=== PATIENT | female | born 1955 | race Caucasian/White ===

== ENCOUNTER 2018-04-13 06:22 | Day surgery (SDC) | payer OTHER ==
[2018-04-10 12:14] LABS: Absolute Lymphocytes (CBC) 1.3 K/uL (0.7-4.9); Absolute Monocytes 0.3 K/uL (0.1-1.3); Absolute Neutrophil 4.8 K/uL (1.8-8.0); Basophils % 0.7 % (0-1.3); Eosinophils % 4.2 % (0-4.4); Hematocrit 51.8 % (36.0-45.0); Lymphocytes % 19.3 % (15.3-44.8); MCV 85.3 fL (80-100); MPV 8.3 fL (7.6-11.3); Monocytes % 4.9 % (3.3-12.3); RBC Red Blood Cell Count 6.07 M/uL (3.86-4.86)
[2018-04-10 12:15] LABS: Protime INR 0.87
--- NOTE | 2018-04-10 12:15 | EKG ---
Test Date: 2018-04-10 Test Time: 10:40:34 Helicopter Pilot Instructor: AIDEN MEASUREMENT RESULTS: Intervals: Rate: 60 MO: 162 QRSD: 84 QT: 418 QTc: 418 [place]: P: 53 MO: 162 QRS: 27 T: 48 INTERPRETIVE STATEMENTS: Normal sinus rhythm Normal ECG Compared to ECG 07/31/2015 18:32:28 No significant changes Electronically Signed On 04-10-18 12:15:02 CDT by Derrell Garcia
[2018-04-10 12:16] LABS: Urine Appearance CLEAR; Urine Bilirubin NEGATIVE (NEG); Urine Blood NEGATIVE (NEG); Urine Color YELLOW; Urine Glucose NEGATIVE (NEG); Urine Protein NEGATIVE (NEG); Urine Specific Gravity 1.025 (1.005-1.030); Urine Urobilinogen 0.2 mg/dL (0.2-1.0)
[2018-04-10 12:20] LABS: Potassium 4.8 mEq/L (3.6-5.0)
[2018-04-10 12:43] LABS: Urine Microscopic Reflex ORDER UMIC
[2018-04-10 12:53] LABS: Blood Morphology Comment NOT SEEN (NOT SEEN); Platelet Estimate ADEQ; Urine White Blood Cell Casts OK
[2018-04-10 14:50] LABS: Urine Bacteria <20 /HPF (<20); Urine RBC <5 /HPF (NONE SEEN)
[2018-04-10 14:51] LABS: Urine Culture Reflex Order NOT NEEDED
[2018-04-13] MEDS ORDERED: Ringers Lactate 1,000 ML IV ONE ×3 (06:36→10:19)
[2018-04-13] MEDS ORDERED: NA CHLORIDE 0.9% 100 ML IV ONE (06:59)
[2018-04-13] MEDS ORDERED: CEFAZOLIN/SWI 1gm 0 GM/0 ML SYR ONE (07:00)
[2018-04-13] MEDS ORDERED: ONDANSETRON HCL 40 MG/20 ML VIAL ONE (07:02)
[2018-04-13] MEDS ORDERED: PROPOFOL 200 MG/20 ML VIAL IV ONE (07:02)
[2018-04-13] MEDS ORDERED: LIDOCAINE 2% MPF 5 ML VIAL ONE (07:02)
[2018-04-13] MEDS ORDERED: ROCURONIUM 50 MG/5 ML VIAL IV ONE (07:02)
[2018-04-13] MEDS ORDERED: MIDAZOLAM HCL 2 MG/2 ML INJ ONE (07:02)
[2018-04-13] MEDS ORDERED: FENTANYL CITR 250 MCG/5 ML ONE ×2 (07:02→08:53)
[2018-04-13] MEDS: VASOPRESSIN 20 UNIT/ML VIAL ONE ×2 (07:34→08:16)
[2018-04-13] MEDS: CEFAZOLIN/SWI 2gm 2 GM/20 ML SYR IV SCH ×2 (07:34→08:00)
[2018-04-13] MEDS ORDERED: GLYCOPYRROLATE 0.2 MG/ML SYR ONE ×3 (08:20→09:59)
[2018-04-13] MEDS ORDERED: EPHEDRINE SULF 50 MG/5 ML SYR ONE (08:22)
[2018-04-13 11:21] VITALS: O2SAT 95
[2018-04-13] MEDS ORDERED: MORPHINE 4 MG/ML SYR IV PRN (11:41)
[2018-04-13] MEDS ORDERED: PROMETHAZINE 25 MG/ML VIAL IV PRN (11:42)
[2018-04-13] MEDS ORDERED: PROMETHAZINE 25 MG TABLET PO PRN (11:43)
[2018-04-13 12:22] VITALS: BMI 29.0
[2018-04-13] MEDS: ACETAMINOPHEN 325 MG TABLET PO PRN ×2 (12:25→19:06)
--- NOTE | 2018-04-14 03:25 | OP ---
Date of Procedure: 04/13/2018 Surgeon: Eulalia White MD Moisture Meter Operator: Sherri Estrella. Preoperative Diagnoses: Stage 3 posterior wall prolapse (rectocele), vaginal wall prolapse, perineal defect, and large posterior enterocele. Postoperative Diagnoses: Stage 3 posterior wall prolapse (rectocele), vaginal wall prolapse, perinea l defect, and large posterior enterocele. Procedures Performed: Posterior wall repair (rectocele repair), posterior enterocele repair, perineo marcela repair, right sacrospinous ligament fixation colpopexy, cystoscopy. Estimated Blood Loss: 100. Complications: No complications. Drains: Howard catheter and vaginal packing. Condition: Stable. Description Of Procedure: After informed consent was re-verified, 1 g of Ancef was given to the delicia ent, and she was brought to the OR. She was placed in supine fashion on the operating table. After general anesthesia was given, she was placed in dorsal lithotomy position using Brody stirrups. Afte r positioning was checked, the lower abdomen, vulva, vagina, and perineum were prepped and draped in a sterile fashion. Pelvic exam was performed and the POP-Q was confirmed. She had -2, -2, -4, 5 cm, thin, 7 cm, 0, +2, and nonapplicable. Her perineal body was thin and there appeared to be perineoce le. After placing a Howard in the bladder, bladder was drained. It was occluded with a Bhakti and retracte d superiorly. A [place] was placed to expose the vaginal wall. The midline posterior wall was held w ith 3 Allis clamps from the apex to the distal portion. Here, 2 Allis clamps were placed on each logan e of the vaginal entrance lateral to the vestibule. Then, local injection was given with dilute vaso pressin 20 units mixed with 50 cc of normal saline. About 40 cc was injected in the perineum and in the posterior wall all the way to the apex. A triangular skin incision was made and excised. Cnc Machinist ior compartment was accessed by entering through this incision. There was at least 4 cm scar that ap peared to be extremely thick. Rectovaginal exam was performed to stay in the right plane and keep aw ay from the bowel. No evidence of any trauma to the bowel. There was like a stitch of retention cys t that was excised on the way. Dissection was carried superiorly, systematically, taking down the re ctovaginal septum away from the vaginal epithelium and sub-epithelium. Once this entire fascia was d issected, about 6 cm of this was present, so distal to this there was a large posterior enterocele, a nd it measured at least about [address], dissection was performed to the apex, and to the la teral sidewall, there was detachment of the wall to the left lateral wall and this most likely was ia trogenic. Once the entire dissection was performed, then the enterocele sac was isolated without ope dixie it or entering it. We went ahead to close it with 3-0 Vicryl in a pursestring fashion and anoth er 2-0 Vicryl more distally right above the level of the fascia. Once these both were reduced, there was good reduction of the posterior enterocele optimally. Then, dissection was performed towards th e right ischial spine. The spine was not very prominent; however, once dissection was carried to her e and sweeping medially and posteriorly towards the coccyx, the sacrospinous ligament was exposed to its coccygeus muscle. The rectum was swept medially and kept away. Two 0 Ethibond sutures were take n. With Capio device opened, the sutures were placed about 2 cm medial and posterior to the ischial spine on the sacrospinous ligament first medially, then the lateral stitch was placed. These both we re held on a curved and a straight clamp and care was taken to not cross them. Then, the possible di stal uterosacral ligaments or the attachment above the level of the apex were held with Allis clamps and sutures of Ethibond were passed through here on both sides and they were retracted and kept later ally. Then, the rectovaginal septum was taken. It was sutured with 2-0 PDS to the apex. The latera l wall that was identically detached was closed with the help of 2-0 Vicryl in a continuous running f ashion. On the right side, there was also detachment here and this was also sutured back to the wall with 2-0 Vicryl. Once all these were reattached to the apex, then the vaginal epithelium was trimme d since it was extremely redundant, probably about half a centimeter on each side. The scar was exci sed in the distal 5 cm where the scar was present. Then, 2-0 Vicryl was used to start the vaginal cl osure of the epithelium from the apex. About 3 cm was closed and this was held on the retractor. Th en, went ahead and tied the sacrospinous sutures. Due to the length of the rectovaginal septum that was naturally present, there was a natural suture bridge left. I was not able to take the apex all t he way down to the sacrospinous ligament and I believe that this would be the safest way not to put e xcessive pressure on the ligament and cause pain. I think, the suspension was adequate. The depth w as 8 cm with preventing excessive tension on the repaired and reattached rectovaginal septum. So, th e suture was tied, the bridge was less than 1 cm. The second suture was tied without any problems an d this came down much better, then the first suture; however, a bridge of less than half centimeter w as still present. The rest of the vaginal epithelium was closed all the way to the level above the vestibule. Prior to the start of the vaginal closure after the septum was reattached on all sides distally, ther e was a perineocele that was a defect present, so here the deep transverse perinei muscles were disse cted laterally to find the retracted ends of these, and these were brought together. Care was taken not to plicate the levators; however, 4 stitches were placed with leaving a finger in the rectum and these were held on hemostats. Then, once all these were placed adequately bringing together the entir e perineum for perineal reconstruction, gloves were changed, and the sutures were tied, and there was an excellent perineal body. The 3-0 Vicryl was used to close in a continuous fashion subcutaneously and then subcuticularly and t his was closed at the hymen. Rectal exam was performed. No evidence of any trauma to the rectum or any sutures, not even at the s acrospinous site. Cystoscopy was performed after removing the Howard and this was mostly unremarkable. Both ureteric or ifices were well visualized and there were strong jets of urine. There was somewhat delayed jet from the left side, but before I decided to put and catheterize it with a stent, it had a strong jet of u rine and from thereon there were strong jets of urine continuously, so there was no need for placing a Glidewire in the ureter. There was no evidence of any mechanical trauma and no foreign body to the bladder. Bladder was drain ed. Howard was replaced. Vagina was packed. The patient was recovered from anesthesia and taken to PACU in stable condition. Instrument, needle, and sponge counts x3 were correct at the end of the ca se. She will be admitted overnight and she will discharge after her voiding trials tomorrow. PABLO/PAUL Voice ID: [id number] Report ID: [id number]
[2018-04-14] MEDS: ACETAMINOPHEN 325 MG TABLET PO PRN (05:25)
[2018-04-14 07:24] VITALS: BP 139/60; TEMP 98.9
== END 2018-04-14 10:15 | disposition home or self-care (01) ==
LOC: OR 06:22 → 2ND-WC 11:22 → OR 04-14 10:15
PROVIDERS: ATTEND Obstetrics & Gynecology
PROC: 0HQ9XZZ Repair Perineum Skin, External Approach (ICD-10-PCS; 2018-04-13)
PROC: 0JQC0ZZ Repair Pelvic Region Subcutaneous Tissue and Fascia, Open Approach (ICD-10-PCS; 2018-04-13)
PROC: 0JQC0ZZ Repair Pelvic Region Subcutaneous Tissue and Fascia, Open Approach (ICD-10-PCS; 2018-04-13)
PROC: 0UQF0ZZ Repair Cul-de-sac, Open Approach (ICD-10-PCS; 2018-04-13)
PROC: 0USG7ZZ Reposition Vagina, Via Natural or Artificial Opening (ICD-10-PCS; 2018-04-13)
PROC: 0TJB8ZZ Inspection of Bladder, Via Natural or Artificial Opening Endoscopic (ICD-10-PCS; 2018-04-13)
PROC: 0JQC0ZZ Repair Pelvic Region Subcutaneous Tissue and Fascia, Open Approach (ICD-10-PCS; principal; 2018-04-13 07:30)
DX: N81.3 Complete uterovaginal prolapse (principal); I10 Essential (primary) hypertension
CPT/HCPCS: 36415; 80048; 81003; 81015; 85025; 85610; 85730; 86850; 86900; 86901; 93005; J0690; J2250; J2405; J2550

== ENCOUNTER 2019-07-23 07:34 | Day surgery (SDC) | payer OTHER ==
--- NOTE | 2019-07-19 12:56 | RAD REPORT ---
EXAM DESCRIPTION: RAD - Chest Pa And Lat (2 Views) - 07/19/2019 11:11 am CLINICAL HISTORY: preoppatient pending gallbladder surgery COMPARISON: July 2015 TECHNIQUE: PA and lateral views of the chest were obtained. FINDINGS: The lungs are clear of an acute infiltrate or mass. Lung markings are prominent but not si gnificantly different from comparison. No failure or volume overload. Heart size is normal and cent ral vasculature is within normal limits. No pleural effusion or pneumothorax seen. No acute bony fi nding noted. No aortic abnormality. IMPRESSION: No acute cardiopulmonary process. Mildly prominent interstitial pattern matches comparison.
[2019-07-20 07:58] LABS: Absolute Lymphocytes (CBC) 1.3 K/uL (0.7-4.9); Basophils % 0.8 % (0-1.3); Lymphocytes % 16.4 % (15.3-44.8); MPV 8.2 fL (7.6-11.3); RBC Red Blood Cell Count 5.37 M/uL (3.86-4.86)
[2019-07-20 08:06] LABS: Potassium 4.4 mmol/L (3.5-5.1)
[2019-07-20 08:08] LABS: Bilirubin Direct 0.1 mg/dL (0-0.2); Bilirubin Total 0.2 mg/dL (0.2-1.0)
--- NOTE | 2019-07-20 08:41 | EKG ---
Test Date: 2019-07-19 Test Time: 08:19:00 Asbestos Brake Lining Finisher Helper: AIDEN MEASUREMENT RESULTS: Intervals: Rate: 71 SD: 152 QRSD: 82 QT: 384 QTc: 417 [place]: P: 51 SD: 152 QRS: 29 T: 56 INTERPRETIVE STATEMENTS: Normal sinus rhythm Normal ECG Compared to ECG 04/10/2018 10:40:34 No significant changes Electronically Signed On 07-20-19 08:39:33 CDT by Derrell Garcia
[2019-07-23] MEDS ORDERED: CIPROFLOXACIN 400mg IV 400 MG/200 ML BAG IV ONE (07:43)
[2019-07-23] MEDS ORDERED: Ringers Lactate 1,000 ML IV ONE ×2 (07:43→10:23)
[2019-07-23] MEDS ORDERED: FENTANYL CITR 100 MCG/2 ML ONE ×2 (08:36→09:55)
[2019-07-23] MEDS ORDERED: PROPOFOL 200 MG/20 ML VIAL IV ONE (08:36)
[2019-07-23] MEDS ORDERED: ROCURONIUM 50 MG/5 ML VIAL IV ONE (08:36)
[2019-07-23] MEDS ORDERED: MIDAZOLAM HCL 2 MG/2 ML INJ ONE (08:36)
[2019-07-23] MEDS ORDERED: LIDOCAINE 2% MPF 5 ML VIAL ONE (08:36)
[2019-07-23] MEDS ORDERED: ONDANSETRON 4 MG/2 ML VIAL ONE (09:31)
[2019-07-23] MEDS ORDERED: dexAMETHasone 10 MG/ML VIAL ONE (09:31)
[2019-07-23] MEDS ORDERED: NEOSTIGMINE 1 MG/ML -10 ML VIAL ONE (09:54)
[2019-07-23] MEDS ORDERED: GLYCOPYRROLATE 0.2 MG/ML SYR ONE ×2 (09:54→10:16)
[2019-07-23] MEDS ORDERED: KETOROLAC 30 MG/ML INJ ONE (09:57)
--- NOTE | 2019-07-23 10:30 | P.BOP ---
Preoperative diagnosis: RUQ abd pain, symptomatic cholelithiasis Postoperative diagnosis: same Primary procedure: Laparoscopic cholecystectomy Customer Technical Services Manager: GAURI BOND (GRADUATING MACHINE OPERATOR) Estimated blood loss: <10cc Specimen: gb Findings: as above Anesthesia: General Complications: None Transferred to: Recovery Room Condition: Good
[2019-07-23] MEDS ORDERED: CODEINE 30MG/APAP 300MG TAB ONE (11:08)
[2019-07-23 12:54] VITALS: BP 139/62; TEMP 97.5; O2SAT 95
--- NOTE | 2019-07-23 22:30 | OP ---
Date of Procedure: 07/23/2019 Surgeon: Kahlil Wahl MD Line Erector: Monse Koch. Preoperative Diagnoses: Right upper quadrant abdominal pain, symptomatic cholelithiasis. Postoperative Diagnoses: Right upper quadrant abdominal pain, symptomatic cholelithiasis. Procedure: Laparoscopic cholecystectomy. Estimated Blood Loss: Less than 10 cc. Specimen: Gallbladder. Anesthesia: General plus local. Indications: This is a case of a 64-year-old patient, comes with above diagnosis. Fully explained t he benefits, alternatives, and risks of laparoscopic, possible open cholecystectomy, which include bu t are not limited to infection, bleeding, damage to adjacent structure, as complication, choledocholi thiasis, bile leak, pancreatitis, NE, and even . She also understands this may not relieve the symptoms. She might need more than one surgical intervention. She understood, signed a consent. Description Of Procedure: The patient was brought to the operating room, placed in supine position. Anesthesia was done without complication. A time-out was called. Abdominal area was prepped and dr aped in a sterile fashion. Marcaine 0.5% was injected for local anesthetic, followed by sharp incisi on of the skin in the infraumbilical region. Incision was carried down to fascia, which was opened u nder direct vision. Vicryl #1 placed inside the fascia. Kelli trocar was carefully introduced. No bleeding was obtained. I placed 3 more trocars, 5 mm each one of them in the epigastric and right u pper quadrant area under direct visualization. The fundus of the gallbladder was grasped with a gras per as we removed the adhesions of omentum to the gallbladder. Infundibulum was identified. Another grasper placed in the infundibulum, the gallbladder retracted in the inferolateral fashion, exposing the triangle of [place], obtaining critical view of safety. The cystic duct and cystic artery were cl early isolated free circumferentially and a connection between those and the gallbladder were clearly identified. I proceeded to ligate those by using at least 3 clips proximal, 1 clip distal, ligation in middle. Same was done with the cystic artery. A small little branch of the cystic artery was al so ligated. The hepatic arteries right and left and common hepatic duct and then and common bile matt t were protected at all times. The gallbladder was removed from liver using Bovie cauterizer and rem korina from abdominal cavity using an EndoCatch through the umbilical incision. After ensuring proper hemostasis, we proceed to irrigate the area. Once again, no bleeding. At that moment, I proceeded t o remove the trocars under direct vision. Deflated the pneumoperitoneum. Closed the fascia with #1 Vicryl. Irrigated subcutaneous tissue, closed that with 3-0 chromic and skin in a subcuticular fashi on with a Steri-Strip on top. Sponge count and instrument counts were correct. The patient tolerate d the procedure well. The patient was sent to recovery in stable condition. HAKAN/PAUL Voice ID: [id number] Report ID: [id number]
--- NOTE | 2019-07-23 22:30 | DS ---
Date of Discharge: 07/23/2019 Diagnoses: Right upper quadrant pain, symptomatic cholelithiasis. Procedure: Laparoscopic cholecystectomy. Disposition: Home. Activity: As tolerated. No heavy lifting. Followup: Follow up in my office in 1 week. Call for appointment at [phone]. Keep area dry for 48 hours, then may shower. Keep Steri-Strips intact. Medications: See orders. HAKAN/PAUL Voice ID: [id number] Report ID: [id number]
== END 2019-07-23 11:35 | disposition home or self-care (01) ==
LOC: OR 07:34
PROVIDERS: ATTEND Surgery
PROC: 0FT44ZZ Resection of Gallbladder, Percutaneous Endoscopic Approach (ICD-10-PCS; principal; 2019-07-23 09:15)
DX: K80.10 Calculus of gallbladder with chronic cholecystitis without obstruction (principal); Z88.0 Allergy status to penicillin
CPT/HCPCS: 93005; 85025; 80048; 36415; 82150; 80076; 88304; 83690; 71046; 47562; J2704; J2710; J2250; J3010 ×2; J1100; J2405; J0744

== ENCOUNTER 2023-06-24 13:16 | Emergency (ER) | payer OTHER ==
--- OUTSIDE RECORDS SUMMARY | 2023-06-24 13:19 | XMS REPORT | Continuity of Care Document ---
:1955 Author Organization [facility] t Address [address] [place] [address] Care Team Providers Name Role Phone Babak Campo MD Primary Care Physician Babak Campo MD Attending Clinician Problems This patient has no known problems. Allergies, Adverse Reactions, Alerts This patient has no known allergies or adverse reactions. Social History Social Habit Start Date Stop Date Quantity Comments Source Gender identity [facility] Sexual orientation [facility] Sex Assigned At [birth year] [facility] 00:00:00 00:00:00 Smoking Status Start Date Stop Date Source Tobacco smoking consumption unknown [facility] Medications This patient has no known medications. Procedures Procedure Date / Time Performed Performing Clinician [facility] e US VASCULAR SCREENING 2022-10-20 15:09:38 Babak Campo [facility] HEART SCAN PLUS CT HEART SCAN PLUS W 2022-10-20 13:21:51 Babak Campo [facility] PHYSICIAN ORDER Plan of Care Planned Activity Planned Date Details Comments Source Future Scheduled 2023-06-21 Screening for [facility] Test 20:10:05 malignant neoplasm of colon (procedure) [code = 173056276] Future Scheduled 2023-06-21 Screening for [facility] Test 20:10:05 malignant neoplasm of colon (procedure) [code = 397334235] Future Scheduled 2023-06-21 Screening for [facility] Test 20:10:05 malignant neoplasm of colon (procedure) [code = 028026595] Future Scheduled 2023-06-21 [facility]atitis C [facility] Test 20:10:05 (procedure) [code = 676170040] Future Scheduled 2023-06-21 BREAST CANCER [facility] Test 20:10:05 SCREENING [code = BREAST CANCER SCREENING] Future Scheduled 2023-06-21 Screening for [facility] Test 20:10:05 malignant neoplasm of colon (procedure) [code = 099541259] Future Scheduled 2023-06-21 Screening for [facility] Test 20:10:05 malignant neoplasm of colon (procedure) [code = 384431710] Future Scheduled 2023-06-21 SHINGLES VACCINES (1 [facility] Test 20:10:05 of 2) [code = SHINGLES VACCINES (1 of 2)] Future Scheduled 2023-06-21 65+ PNEUMOCOCCAL [facility] Test 20:10:05 VACCINE (1 - PCV) [code = 65+ PNEUMOCOCCAL VACCINE (1 - PCV)] Future Scheduled 2023-06-21 COVID-19 VACCINE (4 - Me [facility] Test 20:10:05 Pfizer series) [code = COVID-19 VACCINE (4 - Pfizer series)] Future Scheduled 2023-06-21 INFLUENZA VACCINE (#1) [facility] Test 20:10:05 [code = INFLUENZA VACCINE (#1)] Encounters Start End Encounter Admission Attending Care Care Encounter Source Date/Time Date/Time Type Type Clinicians Facility Department ID 2022-10-20 2022-10-[address]1 [id number] [facility] 07:03:38 23:59:00 Encounter Babak [id number] 3.430.2.7 Hospit a .3.086021 l 8 2022-10-20 2022-10-[address]1 [id number] [facility] 07:03:05 23:59:00 Encounter Babak [id number] 3.430.2.7 Hospit a .3.038876 l .8 2022-10-20 2022-10-20 Outpatient [facility] [id number] 00:00:00 00:00:00 BABAK [address] 2022-10-20 2022-10-20 Outpatient [facility] [id number] [address] [place] [address] 00:00:00 00:00:00 BABAK [address] 2022-10-20 2022-10-20 Travel 1.2.840.1 [id number] [facility] 00:00:00 00:00:[address] 3.430.2.7 0.2.7.3.698 Ho spita .3.952462 084.8 l .8 2022-08-02 2022-08-02 Transcribe Jahaira, 1.2.840.1 [id number] [facility] 00:00:00 00:00:00 Orders Babak [id number] 3.430.2.7 Hospit a .3.453136 l .8 Results This patient has no known results.
[2023-06-24 13:39] LABS: Absolute Lymphocytes (CBC) 1.4 K/uL (0.7-4.9); Hematocrit 49.3 % (36.0-45.0); Lymphocytes % 14.7 % (15.3-44.8); MCV 85.3 fL (80-100); MPV 7.4 fL (7.6-11.3); Platelets 287 thou/uL (152-406); RBC Red Blood Cell Count 5.78 M/uL (3.86-4.86)
[2023-06-24 13:48] LABS: Protime INR 0.95
[2023-06-24 13:58] LABS: Albumin 3.2 g/dL (3.4-5.0); Bilirubin Direct 0.1 mg/dL (0-0.2); Bilirubin Indirect, Calculated 0.3 mg/dL (0.2-0.8); Bilirubin Total 0.4 mg/dL (0.2-1.0); Magnesium 2.1 mg/dL (1.6-2.4); Potassium 3.8 mEq/L (3.5-5.1); Protein, Total 7.3 g/dL (6.4-8.2)
[2023-06-24 14:00] LABS: Troponin High Sensitivity 65.9 pg/mL (<58.9)
--- NOTE | 2023-06-24 14:02 | RAD REPORT ---
EXAM DESCRIPTION: RAD - Chest Single View - 06/24/2023 1:47 pm CLINICAL HISTORY: CHEST PAIN Chest pain. COMPARISON: Chest Pa And Lat (2 Views) dated 07/19/2019; CHEST SINGLE VIEW dated 07/31/2015 FINDINGS: Portable technique limits examination quality. Mild interstitial pulmonary edema. The heart is normal in size. No displaced fractures. IMPRESSION: Mild interstitial pulmonary edema.
--- NOTE | 2023-06-24 14:35 | RAD REPORT ---
EXAM DESCRIPTION: CT - Chest For Pe Angio - 06/24/2023 2:23 pm CLINICAL HISTORY: Chest pain. CHEST PAIN COMPARISON: <Comparisons> TECHNIQUE: CT angiogram of the pulmonary arteries was performed with MIP. All CT scans are performed using dose optimization technique as appropriate and may include automated exposure control or mA/KV adjustment according to patient size. FINDINGS: No evidence of pulmonary thromboembolism. No acute aortic finding demonstrated. Mild diffuse emphysema. No significant pericardial or pleural fluid. No concerning bony finding. 20 mm left thyroid nodule. IMPRESSION: No evidence of pulmonary thromboembolism. Mild diffuse COPD.
[2023-06-24] MEDS ORDERED: ONDANSETRON 4 MG/2 ML VIAL ONE (14:46)
[2023-06-24] MEDS ORDERED: NITROGLYCERIN 0.4 MG/TAB SL ONE (14:46)
[2023-06-24] MEDS ORDERED: MORPHINE 4 MG/ML SYR ONE (14:46)
[2023-06-24] MEDS ORDERED: HEPARIN/D5W 25,000 UNIT/500 ML BAG IV ONE (14:47)
[2023-06-24] MEDS ORDERED: HEPARIN 5000 UNIT/ML 1 ML VIAL ONE (14:47)
--- NOTE | 2023-06-24 14:55 | EDPHYS ---
Physician Documentation [facility] Name: Radha Aguila Age: 68 yrs Sex: Female : 1955 Arrival Date: 06/24/2023 Time: 13:16 Bed 4 Private MD: ED Physician Manuel Stanley HPI: 06/24 13:29 This 68 yrs old Female presents to ER via Unassigned with complaints of Chest Pain, sp3 Sent by . 13:29 68-year-old female with history of hypertension, hyperlipidemia presents to the ED sp3 referred by Dr. Mast's office for possible unstable angina versus acute coronary syndrome. Patient is initially saw Dr. Campo her PCP who then referred her to Dr. Mast who then referred her to the ED. Patient states that over the last 4 to 5 days she has had bad "indigestion" with substernal chest pain dull in nature that will not go away. Rakeshe helped briefly. She has had a cholecystectomy in the past. She denies abdominal pain, vomiting, diarrhea, fever, back pain, syncope, near syncope, focal neurodeficit, known sick contacts, travel history, prolonged immobilization, prior history of DVT or PE, or any other concerning history or symptoms on ROS at this time. Patient received aspirin in the cardiology office prior to arrival.. Historical: - Allergies: 13:36 No Known Allergies; nj1 - PMHx: 13:36 Hypercholesterolemia; Hypertensive disorder; nj1 - PSHx: 13:36 Cholecystectomy; nj1 - Immunization history:: Client reports having NOT received the Covid vaccine. - Social history:: Smoking status: Patient denies any tobacco usage or history of. ROS: 13:30 Constitutional: Negative for fever, chills, and weight loss, Eyes: Negative for injury, sp3 pain, redness, and discharge, ENT: Negative for injury, pain, and discharge, Neck: Negative for injury, pain, and swelling, Respiratory: Negative for shortness of breath, cough, wheezing, and pleuritic chest pain, Abdomen/GI: Negative for abdominal pain, nausea, vomiting, diarrhea, and constipation, Back: Negative for injury and pain, MS/Extremity: Negative for injury and deformity, Skin: Negative for injury, rash, and discoloration, Neuro: Negative for headache, weakness, numbness, tingling, and seizure, Psych: Negative for depression, anxiety, suicide ideation, homicidal ideation, and hallucinations, Allergy/Immunology: Negative for hives, rash, and allergies, Endocrine: Negative for neck swelling, polydipsia, polyuria, polyphagia, and marked weight changes. 13:30 All other systems are negative. Exam: 13:31 ECG was reviewed by the Attending Physician. EKG demonstrates normal sinus rhythm at 76 sp3 bpm with normal intervals, normal QRS, normal axis, normal ST/T-segment's without evidence of acute ischemia. Vital Signs: 13:19 BP 178 / 98; Pulse 87; Resp 18; Temp 98.4(O); Pulse Ox 98% on R/A; Weight 95.25 kg; nj1 Height 5 ft. 10 in. ; 14:30 BP 202 / 102; Pulse 105; Resp 20; Pulse Ox 94% on R/A; iw 14:44 BP 155 / 84; Pulse 102; Resp 16; Pulse Ox 95% on R/A; iw 15:01 BP 139 / 100; Pulse 84; Resp 16; Pulse Ox 97% on 2 lpm NC; iw 15:37 BP 98 / 87; Pulse 86; Resp 16; Pulse Ox 98% on R/A; Pain 0/10; iw 13:19 Body Mass Index 30.13 (95.25 kg, 177.8 cm) nj1 15:37 Pain Scale: Adult iw MDM: 13:24 Patient medically screened. sp3 13:31 Data reviewed: vital signs, nurses notes, lab test result(s), EKG, radiologic studies. sp3 ED course: 68-year-old female with nonspecific chest pain for several days sent by cardiology for further evaluation. Differential diagnosis includes acute coronary syndrome, gastroesophageal reflux, gastritis, pulmonary pathology, mediastinitis, pulmonary embolism, among others. I am not highly suspicious for sepsis or shock. Will obtain CT scan of the chest with PE protocol, laboratory values and EKG has already been done. Likely 23-hour observation under hospitalist with cardiology consultation and further work-up as indicated. Patient has already received aspirin and is clinically stable with no ongoing chest pain and normal EKG for me here in the ED.. 14:41 ED course: Patient had recurrent chest pain on high severity coupled with increased sp3 blood pressure. Nitroglycerin was immediately ordered along with morphine and Zofran. Heparin drip has been started. Repeat EKG demonstrates significant changes compared to her first. She now has inferolateral changes with ST depressions and PVCs with mild elevation in aVR as well. Dr. Mast is at bedside and request transfer to [facility] for urgent catheterization given logistics for other hospitals that he has privileges and would be too slow.. 06/24 13:23 Order name: Basic Metabolic Panel; Complete Time: 14:07 sp3 06/24 13:23 Order name: CBC with Diff; Complete Time: 14:07 sp3 06/24 13:23 Order name: LFT's; Complete Time: 14:07 sp3 06/24 13:23 Order name: Magnesium; Complete Time: 14:07 sp3 06/24 13:23 Order name: NT PRO-BNP; Complete Time: 14:07 sp3 06/24 13:23 Order name: PT-INR; Complete Time: 14:07 sp3 06/24 13:23 Order name: Troponin HS; Complete Time: 14:07 sp3 06/24 13:23 Order name: XRAY Chest (1 view); Complete Time: 14:07 sp3 06/24 13:23 Order name: CT Chest For PE Angio; Complete Time: 14:40 sp3 06/24 13:23 Order name: EKG; Complete Time: 13:24 sp3 06/24 13:23 Order name: Cardiac monitoring; Complete Time: 13:53 sp3 06/24 13:23 Order name: EKG - Nurse/Tech; Complete Time: 13:35 sp3 06/24 13:23 Order name: IV Saline Lock; Complete Time: 13:35 sp3 06/24 13:23 Order name: Labs collected and sent; Complete Time: 13:35 sp3 06/24 13:23 Order name: O2 Per Protocol; Complete Time: 13:53 sp3 06/24 13:23 Order name: O2 Sat Monitoring; Complete Time: 13:53 sp3 06/24 14:30 Order name: EKG - Nurse/Tech: Repeat; Complete Time: 14:50 sp3 06/24 14:39 Order name: NPO; Complete Time: 14:51 sp3 Administered Medications: 14:35 Drug: Nitroglycerin Sublingual 0.4 mg Route: Sublingual; iw 15:30 Follow up: Response: No adverse reaction; Blood pressure is lowered iw 14:35 Drug: morphine IVP or IV 4 mg Route: IVP; Infused Over: 4 mins; Site: left antecubital; iw 15:10 Follow up: Response: No adverse reaction; Pain is decreased iw 14:35 Drug: Ondansetron IVP 4 mg Route: IVP; Site: left antecubital; iw 15:10 Follow up: Response: No adverse reaction iw 14:40 Drug: Heparin (PA-Bolus No thrombolytic) - HEParin IVP 60 units/kg {Co-Signature: ko1 iw (Bethany Narayanan RN).} Route: IVP; Site: left antecubital; 14:42 Follow up: Response: No adverse reaction iw 14:43 Drug: Heparin ([place] Drip) - (D5W IV 500 ml, [place] [address] units) 12 units/kg/hr iw {Co-Signature: ko1 (Bethany Narayanan RN).} Route: IV; Rate: calculated rate; Site: left antecubital; 16:00 Follow up: IV Status: Infusion continued upon transfer iw 14:46 Drug: Nitroglycerin Transdermal Ointment 2 % 1 inches Route: Transdermal; Site: iw anterior chest wall; Disposition: 14:54 Critical Care:. sp3 Disposition Summary: 06/24/23 14:54 Transfer Ordered Transfer Location: [facility] sp3 Reason: Higher level of care sp3 Condition: Stable sp3 Problem: new sp3 Symptoms: have worsened sp3 Accepting Physician: [facility](06/24/23 16:04) iw Diagnosis - Unstable angina, NSTEMI, chest pain sp3 Forms: - Medication Reconciliation Form sp3 - SBAR form sp3 Critical care time excluding procedures: 14:54 Critical care time: Bedside Care: 15 minutes, Consultation: 10 minutes, Family sp3 Intervention: 5 minutes. Total time: 30 minutes Signatures: Dispatcher [employer] Barbara Gaston RN RN iw Manuel Stanley MD MD sp3 Mary Smith RN RN nj1 Bethany Narayanan RN ko1 Corrections: (The following items were deleted from the chart) 16:04 14:54 [facility] cardiology sp3 iw
--- NOTE | 2023-06-24 14:55 | ER ---
Nurse's Notes [facility] Name: Radha Aguila Age: 68 yrs Sex: Female : 1955 Arrival Date: 06/24/2023 Time: 13:16 Bed 4 Private MD: Diagnosis: Unstable angina, NSTEMI, chest pain Presentation: 06/24 13:19 Chief complaint: Patient states: Sent from general office associate for evaluation/treatment. Pt nj1 states she has been having bad indigestion since Tuesday, has gotten worse, interfering with her daily life, saw her PCP this morning, sent to general office associate, given ASA at his office and then sent here. Pt denies chest pain at this time. 13:19 Coronavirus screen: Vaccine status: Patient reports being unvaccinated. Ebola Screen: nj1 Patient denies travel to an Ebola-affected area in the 21 days before illness onset. Initial Sepsis Screen: Does the patient meet any 2 criteria? No. Patient's initial sepsis screen is negative. Does the patient have a suspected source of infection? No. Patient's initial sepsis screen is negative. Risk Assessment: Do you want to hurt yourself or someone else? Patient reports no desire to harm self or others. Onset of symptoms was June 21, 2023. 13:19 Method Of Arrival: Ambulatory nj1 13:19 Acuity: RANDY 2 nj1 14:42 Acuity: RANDY 1 hb Triage Assessment: 16:00 General: Appears in no apparent distress. Behavior is calm, cooperative. iw Historical: - Allergies: 13:36 No Known Allergies; nj1 - PMHx: 13:36 Hypercholesterolemia; Hypertensive disorder; nj1 - PSHx: 13:36 Cholecystectomy; nj1 - Immunization history:: Client reports having NOT received the Covid vaccine. - Social history:: Smoking status: Patient denies any tobacco usage or history of. Screenin:08 [facility] ED Fall Risk Assessment (Adult) Score/Fall Risk Level 0 - 2 = Low Risk. Abuse iw screen: Denies threats or abuse. Denies injuries from another. Nutritional screening: No deficits noted. Tuberculosis screening: No symptoms or risk factors identified. Assessment: 13:50 General: Appears in no apparent distress. comfortable, Behavior is calm, cooperative. iw Pain: Complains of pain in chest Pain does not radiate. Pain began 4-5 days ago. Neuro: Level of Consciousness is awake, alert, obeys commands, Oriented to person, place, time, situation, Moves all extremities. Full function. Cardiovascular: Reports chest pain, Capillary refill < 3 seconds in bilateral fingers Patient's skin is warm and dry. Respiratory: Respiratory effort is even, unlabored, Respiratory pattern is regular, symmetrical. GI: Reports indigestion. Derm: Skin is intact, is healthy with good turgor. Musculoskeletal: Range of motion: intact in all extremities. 14:08 Reassessment: Patient appears in no apparent distress at this time. Patient and/or iw family updated on plan of care and expected duration. Pain level reassessed. Patient is alert, oriented x 3, equal unlabored respirations, skin warm/dry/pink. pt to be NPO until Dr. Stanley speaks to Dr. Santana. 14:40 Reassessment: pt c/o increasing indigestion pain, pt hypertensive, Dr. Stanley placed new iw orders. 14:40 Cardiovascular: Chest pain is described as severe, quality is indigestion, is located iw in chest wall. 15:00 Reassessment: pt feeling better, working on transfer to [facility]. iw 15:37 Reassessment: Patient appears in no apparent distress at this time. Patient states iw feeling better. Patient states symptoms have improved. Vital Signs: 13:19 BP 178 / 98; Pulse 87; Resp 18; Temp 98.4(O); Pulse Ox 98% on R/A; Weight 95.25 kg; nj1 Height 5 ft. 10 in. ; 14:30 BP 202 / 102; Pulse 105; Resp 20; Pulse Ox 94% on R/A; iw 14:44 BP 155 / 84; Pulse 102; Resp 16; Pulse Ox 95% on R/A; iw 15:01 BP 139 / 100; Pulse 84; Resp 16; Pulse Ox 97% on 2 lpm NC; iw 15:37 BP 98 / 87; Pulse 86; Resp 16; Pulse Ox 98% on R/A; Pain 0/10; iw 13:19 Body Mass Index 30.13 (95.25 kg, 177.8 cm) nj1 15:37 Pain Scale: Adult iw ED Course: 13:18 Patient arrived in ED. im 13:23 Manuel Stanley MD is Attending Physician. sp3 13:35 Basic Metabolic Panel Sent. bc6 13:35 CBC with Diff Sent. bc6 13:35 LFT's Sent. bc6 13:35 Magnesium Sent. bc6 13:35 NT PRO-BNP Sent. bc6 13:35 PT-INR Sent. bc6 13:35 Troponin HS Sent. bc6 13:35 Inserted saline lock: 22 gauge in right antecubital area, using aseptic technique. bc6 Blood collected. 13:36 Triage completed. nj1 13:37 Arm band placed on. nj1 13:49 XRAY Chest (1 view) In Process Unspecified. EDMS 13:57 Bethany Narayanan, RN is Primary Nurse. ko1 14:17 Inserted saline lock: 22 gauge in left antecubital area, using aseptic technique. ko1 Patient maintains SpO2 saturation greater than 95% on room air. 14:17 Patient has correct armband on for positive identification. Bed in low position. Call ko1 light in reach. Side rails up X2. Client placed on continuous cardiac and pulse oximetry monitoring. NIBP monitoring applied. cardiac monitor on. Door closed. Noise minimized. Lights dimmed. Warm blanket given. 14:25 CT Chest For PE Angio In Process Unspecified. EDMS 14:41 attempted to initiate a transfer with [facility] and call was dropped eb after three minutes. 14:48 attempted to initiate a transfer with the [facility] call picked up and eb placed on immediate hold. 14:53 initiated a transfer with Caro from the [facility]. eb 14:58 connected the general office associate production clerk for [facility] with Dr. Stanley for patient eb transfer consultation. 15:15 administrative approval given by Enriqueta Reed Rn/ patient has been accepted to [facility] CCU 2 Bed 19/ Dr. Herrera has accepted the patient in transfer/ report to be called to [phone]. 16:00 Primary Nurse role handed off by Bethany Narayanan, RN iw 16:00 Barbara Hwang, EUGENIA is Primary Nurse. iw 16:00 No provider procedures requiring assistance completed. Patient transferred, IV remains iw in place. Administered Medications: 14:35 Drug: Nitroglycerin Sublingual 0.4 mg Route: Sublingual; iw 15:30 Follow up: Response: No adverse reaction; Blood pressure is lowered iw 14:35 Drug: morphine IVP or IV 4 mg Route: IVP; Infused Over: 4 mins; Site: left antecubital; iw 15:10 Follow up: Response: No adverse reaction; Pain is decreased iw 14:35 Drug: Ondansetron IVP 4 mg Route: IVP; Site: left antecubital; iw 15:10 Follow up: Response: No adverse reaction iw 14:40 Drug: Heparin ([place]-Bolus No thrombolytic) - HEParin IVP 60 units/kg {Co-Signature: ko1 iw (Bethany Narayanan RN).} Route: IVP; Site: left antecubital; 14:42 Follow up: Response: No adverse reaction iw 14:43 Drug: Heparin ([place] Drip) - (D5W IV 500 ml, [place] [address] units) 12 units/kg/hr iw {Co-Signature: ko1 (Bethany Narayanan RN).} Route: IV; Rate: calculated rate; Site: left antecubital; 16:00 Follow up: IV Status: Infusion continued upon transfer iw 14:46 Drug: Nitroglycerin Transdermal Ointment 2 % 1 inches Route: Transdermal; Site: iw anterior chest wall; Medication: 14:08 VIS not applicable for this client. iw Outcome: 14:54 ER care complete, transfer ordered by MD. long 16:03 Transferred by ground EMS to [facility], Transfer form completed. iw X-rays sent w/ patient. 16:03 Condition: stable 16:03 Discharge instructions given to family, Instructed on the need for transfer, Demonstrated understanding of instructions. 16:04 Patient left the ED. iw Signatures: Dispatcher [employer] EDMS Barbara Hwang RN RN iw Aurea Cervantes RN RN Ayah Hay Setul, MD MD sp3 Bethany Narayanan, RN RN ko1 Chantel Harper Norma RN RN nj1 Lizeth Yun Bethany Narayanan RN ko1 Corrections: (The following items were deleted from the chart) 15:00 14:41 attempted to initiate a transfer with [facility] and call was dropped after eb three minutes eb
[2023-06-24] MEDS ORDERED: NITROGLYCERIN 1 GM PKT TD ONE (14:56)
[2023-06-24 16:30] VITALS: TEMP 98.4
[2023-06-24 16:35] VITALS: BP 98/87; O2SAT 98
--- NOTE | 2023-06-25 14:39 | EKG ---
Test Date: 2023-06-24 Test Time: 13:25:06 Injection Press Operator: HB MEASUREMENT RESULTS: Intervals: Rate: 76 OK: 156 QRSD: 84 QT: 372 QTc: 418 [place]: P: 55 OK: 156 QRS: 40 T: 95 INTERPRETIVE STATEMENTS: Normal sinus rhythm Normal ECG Compared to ECG 07/19/2019 08:19:00 No significant changes Electronically Signed On 06-25-23 14:36:47 CDT by Dylon Santana
--- NOTE | 2023-06-28 17:00 | EKG ---
Test Date: 2023-06-24 Test Time: 14:32:45 Military Equipment Specialist: MEME MEASUREMENT RESULTS: Intervals: Rate: 92 VA: 152 QRSD: 80 QT: 354 QTc: 437 [place]: P: 55 VA: 152 QRS: 52 T: 127 INTERPRETIVE STATEMENTS: Sinus rhythm with occasional premature ventricular complexes Marked ST abnormality, possible inferior subendocardial injury Abnormal ECG Compared to ECG 06/24/2023 13:25:06 Ventricular premature complex(es) now present ST (T wave) deviation now present Electronically Signed On 06-28-23 16:48:43 CDT by Dylon Santana
== END 2023-06-24 16:04 | disposition short-term general hospital (02) ==
LOC: ER 13:16
DX: I21.4 Non-ST elevation (NSTEMI) myocardial infarction (principal); I10 Essential (primary) hypertension; E78.00 Pure hypercholesterolemia, unspecified
CPT/HCPCS: 96365; 93005 ×2; 85025; 80048; 36415; 83735; 85610; 80076; 84484; 83880; 71275; 71045; 96375; 99285; Q9967; J1644; J2405